=== PATIENT | male | born 1990 | race Caucasian/White ===

== ENCOUNTER 2021-06-19 02:49 | Observation (INO) | payer OTHER ==
[2021-06-19] MEDS ORDERED: KETOROLAC TROMETHAMINE 15 MG/ML VIAL ONE (03:19)
[2021-06-19] MEDS ORDERED: KETOROLAC TROMETHAMINE 15 MG/ML VIAL IVPUSH ONE (03:19)
[2021-06-19 03:26] LABS: BASO % 0.3 % (0-2.0); EOS % 5.5 % (0-4.5); HEMATOCRIT 41.9 % (35.4-49); HEMOGLOBIN 14.3 GM/dL (11.7-16.9); LYMPH % 23.1 % (8-40); MCH 31.1 pg (25.7-33.7); MCHC 34.2 g/dl (32.0-35.9); MEAN CELL VOLUME 90.9 fl (80-96); MEAN PLT VOLUME 6.8 fl (7.5-11.1); MONO % 12.7 % (3.8-10.2); NEUT % 58.4 % (42.8-82.8); PLATELET COUNT 292 10^3/uL (134-434); RBC 4.61 M/mm3 (4.00-5.60); RDW 13.5 % (11.9-15.9)
[2021-06-19 03:37] LABS: INR 1.58 (0.83-1.09); PROTHROMBIN TIME (PATIENT) 18.3 SEC (9.7-13.0)
[2021-06-19 03:39] LABS: ACTIVATED PTT 33.5 SECONDS (25.2-36.5)
[2021-06-19 03:47] LABS: ALBUMIN 3.9 g/dl (3.4-5.0)
[2021-06-19 03:48] LABS: BLOOD UREA NITROGEN 13.8 mg/dL (7-18)
[2021-06-19] MEDS ORDERED: morphine CARPU-JECT 4 MG/1 ML DISP.SYRIN IVPUSH ONE (03:50)
[2021-06-19] MEDS ORDERED: ONDANSETRON 4 MG/2 ML VIAL IVPUSH ONE (03:51)
[2021-06-19 03:52] LABS: BILIRUBIN,TOTAL 1.1 mg/dL (0.2-1); TOT PROT 7.2 g/dl (6.4-8.2)
[2021-06-19] MEDS ORDERED: morphine SULFATE 4 MG/ML VIAL ONE (03:52)
[2021-06-19] MEDS ORDERED: ONDANSETRON 4 MG/2 ML VIAL ONE (03:52)
[2021-06-19 06:20] VITALS: BMI 22.8
[2021-06-19] MEDS ORDERED: ENOXAPARIN NA (PORCINE) 40 MG/0.4 ML DISP.SYRIN SQ SCH (10:00)
[2021-06-19] MEDS ORDERED: MUPIROCIN 2% TOPICAL OINTMENT FOR DECOLONIZATION NS SCH (10:00)
[2021-06-19] MEDS ORDERED: ACETAMINOPHEN 500 MG TABLET (FP) PO PRN (10:26)
[2021-06-19] MEDS ORDERED: IBUPROFEN 600 MG TABLET (FP) PO PRN (10:26)
[2021-06-19 14:26] VITALS: BP 121/76; PULSE 72; TEMP 98
[2021-06-19] MEDS ORDERED: CHLORHEXIDINE GLUCONATE 4% CLEANSER FOR DECOLONIZATION TP SCH (22:00)
== END 2021-06-19 14:50 | disposition home or self-care (01) ==
LOC: JER 02:49 → JERBED 05:10 → INTOOBSV 05:10 → UNDOADMOB 05:10 → JICU 06:03 → JERBED 06:03 → JICU 14:21 → JERBED 14:21
PROVIDERS: ADMIT Internal Medicine; ATTEND Internal Medicine
PROC: 3E023GC Introduction of Other Therapeutic Substance into Muscle, Percutaneous Approach (ICD-10-PCS; principal; 2021-06-19)
PROC: 3E033GC Introduction of Other Therapeutic Substance into Peripheral Vein, Percutaneous Approach (ICD-10-PCS; 2021-06-19)
PROC: 3E033NZ Introduction of Analgesics, Hypnotics, Sedatives into Peripheral Vein, Percutaneous Approach (ICD-10-PCS; 2021-06-19)
DX: M79.603 Pain in arm, unspecified (principal); M79.89 Other specified soft tissue disorders; M79.601 Pain in right arm
CPT/HCPCS: 36415; 80053; 82550; 82553; 85025; 85610; 85730; 86850; 86900; 86901; 93005; 93010; 96372; 96374; 96375; 96376; 99285-25; C9803; G0378; U0003; U0005

== ENCOUNTER 2021-06-20 21:21 | Emergency (ER) | payer OTHER ==
[2021-06-20 21:32] VITALS: BP 126/80; PULSE 115; TEMP 97.9; BMI 22.9
[2021-06-20] MEDS ORDERED: DOXYCYCLINE HYCLATE 100 MG CAPSULE PO ONE ×3 (21:59→22:15)
== END 2021-06-20 22:44 | disposition home or self-care (01) ==
LOC: JER 21:21
DX: L03.113 Cellulitis of right upper limb (principal)
CPT/HCPCS: 99283-25